=== PATIENT | male | born 1965 | race Caucasian/White ===

== ENCOUNTER 2016-11-24 11:40 | Inpatient (IN) | payer OTHER ==
[~2016-11-24] VITALS: Ht 177.8 cm; Wt 87.7 kg
[2016-11-24] MEDS ORDERED: ATOR40TA75 PO (12:09)
[2016-11-24] MEDS ORDERED: ASPI1TAB PO (12:09)
[2016-11-24 12:21] LABS: MEAN CORPUSCULAR HEMOGLOBIN 30.2 pg (27.0-33.0); MEAN CORPUSCULAR HGB CONC 33.8 g/dl (32.0-36.5); MEAN CORPUSCULAR VOLUME 89.3 fl (80.0-96.0); WHITE BLOOD COUNT 4.9 K/mm3 (4.0-10.0)
[2016-11-24 12:43] LABS: METHADONE URINE NEGATIVE (NEGATIVE)
[2016-11-24 12:50] LABS: ALKALINE PHOSPHATASE 97 U/L (45-117); ALT/SGPT 100 U/L (12-78); ANION GAP 10 MEQ/L (8-16); AST/SGOT 46 U/L (15-37); BILIRUBIN,DIRECT 0.2 MG/DL (0.0-0.2); BILIRUBIN,TOTAL 0.9 MG/DL (0.2-1.0); BLOOD UREA NITROGEN 15 MG/DL (7-18); CALCIUM LEVEL 9.6 MG/DL (8.5-10.1); CARBON DIOXIDE LEVEL 22 MEQ/L (21-32); CHLORIDE LEVEL 110 MEQ/L (98-107); CREATININE FOR GFR 0.85 MG/DL (0.70-1.30); GLOMERULAR FILTRATION RATE > 60.0 (>60); GLUCOSE, FASTING 115 MG/DL (70-105); POTASSIUM SERUM 4.1 MEQ/L (3.5-5.1); SODIUM LEVEL 142 MEQ/L (136-145)
[2016-11-24 12:51] LABS: ALBUMIN 4.2 GM/DL (3.2-5.2); ALBUMIN/GLOBULIN RATIO 1.08 (1.00-1.93); TOTAL PROTEIN 8.1 GM/DL (6.4-8.2)
[2016-11-24] MEDS ORDERED: MULT1TAB18 PO (13:01)
[2016-11-24] MEDS ORDERED: MULTCAP11 PO (13:01)
[2016-11-24] MEDS ORDERED: IBUP1TAB7 PO (13:01)
[2016-11-24] MEDS ORDERED: VITMTA PO (13:02)
--- NOTE | 2016-11-24 15:02 | MHHPEPDOC ---
[facility] History & Physical History and Physical DATE OF ADMISSION: Nov 24, 2016 at 13:37 LEGAL STATUS AT ADMISSION: 9.39 CHIEF COMPLAINT: "I've been having a hard time. I can't make decisions and work is stressing me out". 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 He was previously evaluated for similar symptoms in our ER in August 2015 and transferred to [facility]. Per review of chart he also had suicidal thoughts while stationed in [place] in 2013. 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 He was alone at home and brought out his service [employer] and thought he would use it to cut his wrists. He thought better of it and gave it over to his when she came home. [facility] [place] told [place] that for approximately 2 weeks he has had thoughts of suicide. He was escorted to our emergency department. Pts identified stressors include work related stress. Pt was tapered off Wellbutrin at his request approximately 2 weeks ago. He has been receiving therapy services as well at [facility]. Pt was deployed to [place] once and [place] twice. total time deployed was in excess of 3 years. He denies being near any blasts or explosions. Denies head trauma or concussion. 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 He states he is being med-boarded due to his heel problem. PSYCHIATRIC REVIEW OF SYSTEMS: Affective: anxious Anxiety: high Trauma: denies Psychosis: not present Personally: cooperative PAST PSYCHIATRIC HISTORY: Prior Psychiatric Disorder: 1 prior admission 08/2015 for SI. Outpatient Treatment: [facility], med mgt and therapy Suicidal/Self injurious: no attempts, came close 1 time with scissors to wrist. Psychotropic Medication History: zoloft - hardly talked at all, wellbutrin 300 mg no effect, zolpidem-ineffective. ALLERGIES: Please see below. FAMILY PSYCHIATRIC HISTORY: 1 uncle and 1 aunt from same family alcohol and drugs, brother was on zoloft at one time but no longer. Mother had depression. No suicides SOCIAL HISTORY: Early Relations/development: raised by both parents. Reports a "rough" childhood. Grew up in [place]. Sibling order: Oldest, 1 sister and 1 brother Paternal relationships: father was a weekend alcoholic and verbally abusive. 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 no combat. SUBSTANCE ABUSE HISTORY: 5-6 beers on Thursday night. PAST MEDICAL/SURGICAL HISTORY: 1. heel surgery 2017 for heel spur. 2. L wrist surgery after fx 20 years ago. 3. hypercholestremia - takes lipitor 40 mg daily. VITAL SIGNS: Temperature 98.1, pulse 84, respiratory rate 18, blood pressure 138 /83, pulse oximetry 96% on room air. 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 Very neat and trim in appearance, fidgets with fingers and hands throughout interview, fair eye contact. appears distressed. Speech: spontaneous Thought processes: goal directed. Thought content: appropriate. Abstract reasoning and computation: concrete Description of associations: good. Description of abnormal or psychotic thoughts: denies auditory and visual disturbance, has had suicidal thoughts off and on for 2-3 weeks. 2nd psychiatric admission. Judgment: good - told about his suicidal thoughts. Insight: agreed to try a new medication. good. Orientation: well oriented to place, time, situation and person. Recent and remote memory: fair, pt was 2/3 for recall after 5 mins. Attention span and concentration: decreased due to depression Fund of knowledge: Full Mood: depressed Affect: anxious, congruent. DIAGNOSES: 1. Major depressive disorder, recurrent, severe, without psychotic features. ASSESSMENT: Pt does not exhibit a formal thought disorder. No evidence of FOI, IOR or MAYCOL. Pt is reluctant to begin medication but the onset of this recent decline began 2 weeks ago when Wellbutrin 300 mg as tapered down. He has not taken any medication for 2 weeks which coincides with the onset of depression. He was on the medication about a year but states he did not feel a benefit to it. He has issues with each medication he has been prescribed so far. Talked to him about the difference in SSRI and SNRI. Offered him a trial of Effexor ER and Quetiapine for insomnia. Pt reports interrupted sleep with frequent awakening, lack of energy, decreased concentration, loss of interest in his hobbies of golfing and fishing. Pt denies guilt or hopelessness. Denies panic or worry. States he has a hard time sitting still. He fidgets constantly as he is interviewed, moving fingers and hands, looking down at the floor. Pt is concerned about his work performance and states he struggles with making decisions and "what to do next". Pt denies any prior attempt at suicide. He reports one time he held the scissors to his wrist but did not injure himself. This time he was thinking of using his service [employer] to cut his wrist. He told his about his thoughts and then he went to [facility] the [place]. Pt has a daughter and son in [place]. He has a middle son in [facility]. He has several grand children. PROBLEM LIST: 1. risk for suicide 2. depression 3. ineffective coping skills Plan: initiate treatment with venlafaxine xr at 37.5 mg if well tolerated, advance to 75 mg. Involve pt in groups, facilitate visitation with . INITIAL TREATMENT PLAN: 1. Patient was admitted on a . 2. Complete history was obtained. 3. With patients permission, family will be contacted and database will be expanded. 4. Patients medication regimen will be reviewed and changed accordingly. 5. Patient will be provided with protected environment. 6. Patient will be treated with individual, group, and milieu therapies. 7. Patient will receive supportive psych-education. 8. Discharge planning will commence immediately. 9. Outpatient follow-up treatment will be strongly recommended. 10. The initial treatment plan will focus initially on: see problem list. ESTIMATED LENGTH OF STAY: 7-10 DAYS. TIME SPENT COUNSELING AND COORDINATING INITIAL CARE: 50 minutes. Laboratory Data 24H Labs Laboratory Tests 2 11/24/16 12:04: Anion Gap 10, Glomerular Filtration Rate > 60.0, Calcium Level 9.6, Aspartate Amino Transf (AST/SGOT) 46H, Alanine Aminotransferase (ALT/SGPT) 100H, Alkaline Phosphatase 97, Total Bilirubin 0.9, Direct Bilirubin 0.2, Total Protein 8.1, Albumin 4.2, Albumin/Globulin Ratio 1.08, Thyroid Stimulating Hormone (TSH) 1.310, Salicylates Level < 1.7L, Urine Amphetamines Screen NEGATIVE, Urine Benzodiazepines Screen NEGATIVE, Urine Opiates Screen NEGATIVE, Urine Methadone Screen NEGATIVE, Acetaminophen Level < 2.0L, Urine Barbiturates Screen NEGATIVE , Urine Phencyclidine Screen NEGATIVE, Urine Cocaine Metabolite Screen NEGATIVE , Urine Cannabinoids Screen NEGATIVE, Ethyl Alcohol Level < 0.003 CBC/BMP Laboratory Tests 11/24/16 12:04 Red Blood Count 5.14, Mean Corpuscular Volume 89.3, Mean Corpuscular Hemoglobin 30.2, Mean Corpuscular Hemoglobin Concent 33.8, Red Cell Distribution Width 13.0 Medications Scheduled Aspirin (Aspirin 81) 81 Mg Tab, 81 MG PO DAILY, (Reported) Atorvastatin Calcium (Atorvastatin Calcium) 40 Mg Tab, 40 MG PO DAILY, (Reported ) Multivitamins *SMC STOCKED* (Thera M Plus *SMC STOCKED*) 1 Tab Tab, 1 TAB PO DAILY, (Reported) TAKES ALONG WITH ASPRIN Scheduled PRN Ibuprofen (Ibuprofen) 800 Mg Tab, 800 MG PO Q6H PRN for PAIN, (Reported) Allergies Coded Allergies: Sertraline (Unverified Adverse Reaction, Unknown, COULDN'T SPEAK, STARTED PULLING OUT HAIR AND EYEBROWS, 11/24/16) Zolpidem (Unverified Adverse Reaction, Unknown, COULDN'T SPEAK, STARTED PULLING OUT HAIR AND EYEBROWS, 11/24/16) Keke Pruitt Nov 24, 2016 15:02
[2016-11-24] MEDS ORDERED: IBUPROFEN 400 MG TAB PO PRN (15:30)
[2016-11-24] MEDS ORDERED: MAALOX 30 ML SUSP *UDC PO PRN (15:30)
[2016-11-24] MEDS ORDERED: traZODone 50 MG TAB PO PRN (15:30)
[2016-11-24] MEDS ORDERED: MOM 30ML SUSPENSION UDC PO PRN (15:30)
[2016-11-24] MEDS ORDERED: OLANZapine ORAL DISINTEGRATING TAB 5MG PO PRN (15:30)
[2016-11-24] MEDS: VENLAFAXINE **XR** 37.5 MG CAPSULE PO SCH (17:10)
[2016-11-24] MEDS: ATORVASTATIN 20 MG TAB PO SCH (20:42)
[2016-11-24] MEDS: QUEtiapine FUMARATE 50 MG TAB PO SCH (20:42)
[2016-11-25 07:06] VITALS: BP 111/75
[2016-11-25] MEDS: ASPIRIN 81 MG ENTERIC TAB PO SCH (08:21)
[2016-11-25] MEDS: VENLAFAXINE **XR** 37.5 MG CAPSULE PO SCH (08:21)
[2016-11-25] MEDS: MULTIVITAMINS/MINERALS THERAP 1 TAB PO SCH (08:21)
--- NOTE | 2016-11-25 09:35 | HPEPDOC ---
Medical History and Physical Date of Admission Nov 24, 2016 at 13:37 History and Physical PCP: [facility] ATTENDING: Dr. Rodriguez Linares HPI: 51 yoM admitted to [facility] for major depressive disorder, being medically examined today. No acute medical complaints today. Denies any fevers, chills, weakness, fatigue, [place], CP, SOB, cough, palpitations, abdominal pain, N/V/D or changes in bowel or bladder habits. 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 ROS: As noted in HPI, otherwise 11pt ROS of systems reviewed and unremarkable. PE: GEN: 51yoM, appears stated age. Well-nourished, well developed. No acute distress. Alert and oriented x 3. Pleasant, interactive. HEENT: Normocephalic, atraumatic. Pupils are equal, round, and reactive to light. Extraocular movements are intact. No nystagmus appreciated. Sclera are nonicteric. Conjunctiva without injection. Nose midline. Nasal turbinates without bogginess. EACs both patent BL. TMs both visualized and reynolds with good cone of light, no bulging or erythema. No facial asymmetry. Moist mucous membranes. Dentition fair. Pharynx pink and moist, no cobblestoning. Neck supple , trachea midline. No lymphadenopathy or thyromegaly appreciated. CHEST: Regular rate and rhythm, +S1, +S2 LUNGS: Clear to auscultation bilaterally. No wheezes, rales, or rhonchi. Breathing appears symmetric and easy. Patient is speaking in full sentences. No accessory muscle use. ABD: Round, soft, non-tender, non-distended. +Bowel sounds throughout. No rebound or guarding. No costovertebral angle tenderness. EXT: Pulses 2+ bilaterally dorsalis pedis and radial. No lower extremity edema appreciated. SKIN: [place], dry, warm. Capillary refill <2sec. No rashes. NEURO: Alert and oriented x 3. Cranial nerves III-XII are intact. No focal deficits appreciated. EKG: pending. A&P: 51 yoM admitted to [facility] for major depressive disorder 1. Psych. Plan per Psychiatry. Obtain baseline EKG to assure the safety of psychiatric medications as they can prolong the QT interval. 2. Hyperlipidemia. Continue Lipitor 40 mg daily. Continue aspirin 81 mg daily. Continue outpatient follow-up. 3. History of tattoo done unprofessionally. Patient is agreeable to HIV and hepatitis screening. 4. Follow up with PCP on discharge. 5. Elevated LFTs. Recheck CMP in a.m. Hepatitis profile as noted above. 6. Staff member Ed present throughout exam. Vital Signs Vital Signs Date Time Temp Pulse Resp B/P (MAP) Pulse Ox O2 Delivery O2 Flow Rate FiO2 11/25/16 07:06 98.9 90 16 111/75 (87) Room Air 11/24/16 13:56 96 Laboratory Data Labs 24H Laboratory Tests 2 11/24/16 12:04: Anion Gap 10, Glomerular Filtration Rate > 60.0, Calcium Level 9.6, Aspartate Amino Transf (AST/SGOT) 46H, Alanine Aminotransferase (ALT/SGPT) 100H, Alkaline Phosphatase 97, Total Bilirubin 0.9, Direct Bilirubin 0.2, Total Protein 8.1, Albumin 4.2, Albumin/Globulin Ratio 1.08, Thyroid Stimulating Hormone (TSH) 1.310, Salicylates Level < 1.7L, Urine Amphetamines Screen NEGATIVE, Urine Benzodiazepines Screen NEGATIVE, Urine Opiates Screen NEGATIVE, Urine Methadone Screen NEGATIVE, Acetaminophen Level < 2.0L, Urine Barbiturates Screen NEGATIVE , Urine Phencyclidine Screen NEGATIVE, Urine Cocaine Metabolite Screen NEGATIVE , Urine Cannabinoids Screen NEGATIVE, Ethyl Alcohol Level < 0.003 CBC/BMP Laboratory Tests 11/24/16 12:04 Red Blood Count 5.14, Mean Corpuscular Volume 89.3, Mean Corpuscular Hemoglobin 30.2, Mean Corpuscular Hemoglobin Concent 33.8, Red Cell Distribution Width 13.0 Home Medications Scheduled Aspirin (Aspirin 81) 81 Mg Tab, 81 MG PO DAILY Atorvastatin Calcium (Atorvastatin Calcium) 40 Mg Tab, 40 MG PO DAILY Multivitamins *SMC STOCKED* (Thera M Plus *SMC STOCKED*) 1 Tab Tab, 1 TAB PO DAILY TAKES ALONG WITH ASPRIN Scheduled PRN Ibuprofen (Ibuprofen) 800 Mg Tab, 800 MG PO Q6H PRN for PAIN Allergies Coded Allergies: Sertraline (Unverified Adverse Reaction, Unknown, COULDN'T SPEAK, STARTED PULLING OUT HAIR AND EYEBROWS, 11/24/16) Zolpidem (Unverified Adverse Reaction, Unknown, COULDN'T SPEAK, STARTED PULLING OUT HAIR AND EYEBROWS, 11/24/16) Farheen Gary Nov 25, 2016 09:35
--- NOTE | 2016-11-25 11:33 | MHIPNPDOC ---
[facility] Progress Note Progress Note DATE OF SERVICE: 11/25/16 HISTORY: day 2 of admission for active SI with plan. VITAL SIGNS: See below. NEW TEST RESULTS: na CURRENT MEDICATIONS: See below. MENTAL STATUS EXAMINATION: Patient is a 51-year old male, who is average height, lean build, short light colored hair and eye glasses. Speech: Is spontaneous Language skills are good. Thought processes including: goal directed. Thought content: appropriate. Abstract reasoning, and computation: good. Description of associations: good. Description of abnormal or psychotic thoughts: recurring SI with plan to cut wrists. Not having SI since admission, no delusions, low self-esteem ("I can't do anything right"). Judgment: good. Insight: good. Orientation: well oriented. Recent and remote memory: some c/o inability to recall things, recent and remote Attention span and concentration: varies due to depression Fund of knowledge: Full. Mood: depressed. Affect: congruent, stoic. DIAGNOSES: 1. MDD, severe, recurrent, without psychotic features. 2. MIMA ASSESSMENT:Pt 's records from [facility] were reviewed. His daughter is getting in [place] on 12/20. He has been a member of [employer]. His case is due to be presented for boarding on 12/09/16. He questions if it is for behavioral health or his foot. Pt was also prescribed Abilify recently 5 mg and mirtazapine 7. 5mg. He stopped all meds without his psychiatrists knowledge 2 weeks ago which coincides with his decline in mood an onset of SI. MANAGEMENT PLAN: I will not restart the Abilify at this time. Will continue with Seroquel for now and monitor effectiveness. pt did not benefit from Wellbutrin or mirtazapine or the augmentation of Abilify. Perhaps he will have a better response to current medications. Continue to monitor safety, effectiveness of meds, enc group engagement. MEDICAL DATA: PE: GEN: 51yoM, appears stated age. Well-nourished, well developed. No acute distress. Alert and oriented x 3. Pleasant, interactive. HEENT: Normocephalic, atraumatic. Pupils are equal, round, and reactive to light. Extraocular movements are intact. No nystagmus appreciated. Sclera are nonicteric. Conjunctiva without injection. Nose midline. Nasal turbinates without bogginess. EACs both patent BL. TMs both visualized and reynolds with good cone of light, no bulging or erythema. No facial asymmetry. Moist mucous membranes. Dentition fair. Pharynx pink and moist, no cobblestoning. Neck supple , trachea midline. No lymphadenopathy or thyromegaly appreciated. CHEST: Regular rate and rhythm, +S1, +S2 LUNGS: Clear to auscultation bilaterally. No wheezes, rales, or rhonchi. Breathing appears symmetric and easy. Patient is speaking in full sentences. No accessory muscle use. ABD: Round, soft, non-tender, non-distended. +Bowel sounds throughout. No rebound or guarding. No costovertebral angle tenderness. EXT: Pulses 2+ bilaterally dorsalis pedis and radial. No lower extremity edema appreciated. SKIN: [place], dry, warm. Capillary refill <2sec. No rashes. NEURO: Alert and oriented x 3. Cranial nerves III-XII are intact. No focal deficits appreciated. EKG: pending. A&P: 51 yoM admitted to [facility] for major depressive disorder 1. Psych. Plan per Psychiatry. Obtain baseline EKG to assure the safety of psychiatric medications as they can prolong the QT interval. 2. Hyperlipidemia. Continue Lipitor 40 mg daily. Continue aspirin 81 mg daily. Continue outpatient follow-up. 3. History of tattoo done unprofessionally. Patient is agreeable to HIV and hepatitis screening. 4. Follow up with PCP on discharge. 5. Elevated LFTs. Recheck CMP in a.m. Hepatitis profile as noted above. TIME SPENT: 25 minutes. Vital Signs Vital Signs Date Time Temp Pulse Resp B/P (MAP) Pulse Ox O2 Delivery O2 Flow Rate FiO2 11/25/16 07:06 98.9 90 16 111/75 (87) Room Air 11/24/16 13:56 96 Laboratory Data 24H Labs Laboratory Tests 2 11/24/16 12:04: Anion Gap 10, Glomerular Filtration Rate > 60.0, Calcium Level 9.6, Aspartate Amino Transf (AST/SGOT) 46H, Alanine Aminotransferase (ALT/SGPT) 100H, Alkaline Phosphatase 97, Total Bilirubin 0.9, Direct Bilirubin 0.2, Total Protein 8.1, Albumin 4.2, Albumin/Globulin Ratio 1.08, Thyroid Stimulating Hormone (TSH) 1.310, Salicylates Level < 1.7L, Urine Amphetamines Screen NEGATIVE, Urine Benzodiazepines Screen NEGATIVE, Urine Opiates Screen NEGATIVE, Urine Methadone Screen NEGATIVE, Acetaminophen Level < 2.0L, Urine Barbiturates Screen NEGATIVE , Urine Phencyclidine Screen NEGATIVE, Urine Cocaine Metabolite Screen NEGATIVE , Urine Cannabinoids Screen NEGATIVE, Ethyl Alcohol Level < 0.003 CBC/BMP Laboratory Tests 11/24/16 12:04 Red Blood Count 5.14, Mean Corpuscular Volume 89.3, Mean Corpuscular Hemoglobin 30.2, Mean Corpuscular Hemoglobin Concent 33.8, Red Cell Distribution Width 13.0 Current Medications Current Medications Al Hydrox/Mg Hydrox/Simethicone (Mylanta) 30 ml Q4HP PRN PO HEARTBURN/ INDIGESTION; Start 11/24/16 at 15:30; Stop 12/24/16 at 15:29 Aspirin (Ecotrin) 81 mg DAILY PO Last administered on 11/25/16 08:21; Start at 09:00; Stop 12/25/16 at 08:59 Atorvastatin Calcium (Lipitor) 40 mg QHS PO Last administered on 11/24/16 20: 42; Start 11/24/16 at 21:00; Stop 12/24/16 at 20:59 Home Med (Med Rec Complete!) ASDIRECTED XX ; Start 11/24/16 at 13:15; Stop at 13:15; Status DC Ibuprofen (Advil) 400 mg Q6HP PRN PO PAIN; Start 11/24/16 at 15:30; Stop at 15:29 Magnesium Hydroxide (Milk Of Magnesia) 30 ml DAILYPRN PRN PO CONSTIPATION; Start 11/24/16 at 15:30; Stop 12/24/16 at 15:29 Multivitamins (Theragram-M) 1 tab DAILY PO Last administered on 11/25/16 08:21 ; Start 11/25/16 at 09:00; Stop 12/25/16 at 08:59 Olanzapine (ZyPREXA ZYDIS) 5 mg Q6HP PRN PO ANXIETY/AGITATION; Start at 15:30; Stop 12/24/16 at 15:29 Quetiapine Fumarate (SEROquel) 50 mg QHS PO Last administered on 11/24/16 20: 42; Start 11/24/16 at 21:00; Stop 12/24/16 at 20:59 Trazodone HCl (Desyrel) 50 mg QHSP PRN PO INSOMNIA; Start 11/24/16 at 15:30; Stop 12/24/16 at 15:29; Status Cancel Venlafaxine HCl (Effexor Xr) 37.5 mg QAM PO Last administered on 11/25/16 08:21; Start 11/24/16 at 09:00; Stop 12/24/16 at 08:59 Allergies Coded Allergies: Sertraline (Unverified Adverse Reaction, Unknown, COULDN'T SPEAK, STARTED PULLING OUT HAIR AND EYEBROWS, 11/24/16) Zolpidem (Unverified Adverse Reaction, Unknown, COULDN'T SPEAK, STARTED PULLING OUT HAIR AND EYEBROWS, 11/24/16) Keke Pruitt Nov 25, 2016 11:33
[2016-11-25 18:21] VITALS: BP 136/84
--- NOTE | 2016-11-25 20:48 | ECGEPIP ---
Stationary ECG Study [facility] Test Date: 2016-11-25 Pat Name: ALEX MORRISSEY Department: Room: [place] [address] Gender: M Javascript Developer: TRINA : [id number] Requested By: Farheen Gary Order Number: [id number] Reading MD: Rodriguez Pérez Measurements Intervals [place] Rate: 66 P: 46 DC: 146 QRS: 11 QRSD: 85 T: 46 QT: 367 QTc: 387 Interpretive Statements SINUS RHYTHM NONSPECIFIC T-WAVE ABNORMALITY No prior ECG available for comparison at the time of interpretation. Electronically Signed On 11-25-2016 20:48:33 EDT by Rodriguez Pérez
[2016-11-25] MEDS: QUEtiapine FUMARATE 50 MG TAB PO SCH (21:41)
[2016-11-25] MEDS: ATORVASTATIN 20 MG TAB PO SCH (21:42)
[2016-11-26 06:44] VITALS: BP 181/94
[2016-11-26 07:02] VITALS: BP 120/65
[2016-11-26 07:13] LABS: ALBUMIN 3.5 GM/DL (3.2-5.2); ALKALINE PHOSPHATASE 78 U/L (45-117); ALT/SGPT 77 U/L (12-78); ANION GAP 7 MEQ/L (8-16); AST/SGOT 27 U/L (15-37); BILIRUBIN,TOTAL 0.9 MG/DL (0.2-1.0); BLOOD UREA NITROGEN 15 MG/DL (7-18); CALCIUM LEVEL 9.1 MG/DL (8.5-10.1); CARBON DIOXIDE LEVEL 26 MEQ/L (21-32); CHLORIDE LEVEL 109 MEQ/L (98-107); CREATININE FOR GFR 0.88 MG/DL (0.70-1.30); GLOMERULAR FILTRATION RATE > 60.0 (>60); GLUCOSE, FASTING 106 MG/DL (70-105); POTASSIUM SERUM 4.2 MEQ/L (3.5-5.1); SODIUM LEVEL 142 MEQ/L (136-145)
[2016-11-26] MEDS: ASPIRIN 81 MG ENTERIC TAB PO SCH (09:11)
[2016-11-26] MEDS: MULTIVITAMINS/MINERALS THERAP 1 TAB PO SCH (09:11)
[2016-11-26] MEDS: VENLAFAXINE **XR** 75MG CAPSULE PO SCH (09:11)
--- NOTE | 2016-11-26 11:15 | MHIPNPDOC ---
[facility] Progress Note Progress Note DATE OF SERVICE: 11/26/16 HISTORY: day 3 of admission for SI with plan. VITAL SIGNS: See below. NEW TEST RESULTS: EKG results: QTc Interval wnl. repeat labs wnl.Stationary ECG Study 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 Electronically Signed On 11-25-2016 20:48:33 EDT by Rodriguez Pérez DD: Rodriguez Pérez MD [facility] 11/25/16 1307 DT: EP 11/25/162047 CURRENT MEDICATIONS: See below. 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 Very neat and trim in appearance, fair eye contact. appears more relaxed, smiling. Speech: spontaneous Thought processes: goal directed. Thought content: appropriate. Abstract reasoning and computation: concrete Description of associations: good. Description of abnormal or psychotic thoughts: denies auditory and visual disturbance, has had suicidal thoughts off and on for 2-3 weeks. 2nd psychiatric admission. Judgment: good - told about his suicidal thoughts. Insight: agreed to try a new medication. good. Orientation: well oriented to place, time, situation and person. Recent and remote memory: fair, pt was 2/3 for recall after 5 mins. Attention span and concentration: decreased due to depression Fund of knowledge: Full Mood: depressed Affect: anxious, congruent. DIAGNOSES: 1. Major depressive disorder, recurrent, severe, without psychotic features. ASSESSMENT:met with pt for 1:1. He is still experiencing night time awakening. Last night he was awake at 1:30 and 4:00 a.m. He is tolerating Effexor without difficulties. Educated pt on s/s of allergic reaction and benefits to medication along with risks. He is not having n/d or bloating. No palpitations or excessive sweating. No CASTANON or skin rash. Mood is euthymic but he continues to have random thoughts of suicide. he needs additional time to stabilize with the medication changes. Pt has good hygiene, is wearing his watch. His has visited. He attends programming. He was informed of a promotion last night. He is under-whelmed by it. He would prefer less work related stress. Pt adheres to medication regime and unit rules and protocols. Interactions are appropriate. Prognosis is good. Discussed not stopping meds without discussing with provider ahead of time. MANAGEMENT PLAN: increase Seroquel to 75 mg at hs, continue observation for safety as pt still reporting SI but random, not constant. No plan and no intent. Monitor sleep for effectiveness of medication increase. TIME SPENT: 25 minutes. Vital Signs Vital Signs Date Time Temp Pulse Resp B/P (MAP) Pulse Ox O2 Delivery O2 Flow Rate FiO2 11/26/16 07:02 120/65 (83) 11/26/16 06:44 100.2 79 20 11/25/16 18:21 Room Air 11/24/16 13:56 96 Laboratory Data 24H Labs Laboratory Tests 2 11/26/16 06:26: Anion Gap 7L, Glomerular Filtration Rate > 60.0, Blood Urea Nitrogen 15, Creatinine 0.88, Sodium Level 142, Potassium Level 4.2, Chloride Level 109H, Carbon Dioxide Level 26, Calcium Level 9.1, Aspartate Amino Transf (AST/SGOT) 27 , Alanine Aminotransferase (ALT/SGPT) 77, Alkaline Phosphatase 78, Total Bilirubin 0.9, Total Protein 7.0, Albumin 3.5, Albumin/Globulin Ratio 1.00 CBC/BMP Laboratory Tests 11/26/16 06:26 Calcium Level 9.1, Aspartate Amino Transf (AST/SGOT) 27, Alanine Aminotransferase (ALT/SGPT) 77, Alkaline Phosphatase 78, Total Bilirubin 0.9, Total Protein 7.0, Albumin 3.5 Current Medications Current Medications Al Hydrox/Mg Hydrox/Simethicone (Mylanta) 30 ml Q4HP PRN PO HEARTBURN/ INDIGESTION; Start 11/24/16 at 15:30; Stop 12/24/16 at 15:29 Aspirin (Ecotrin) 81 mg DAILY PO Last administered on 11/26/16t 09:11; Start at 09:00; Stop 12/25/16 at 08:59 Atorvastatin Calcium (Lipitor) 40 mg QHS PO Last administered on 11/25/16 21: 42; Start 11/24/16 at 21:00; Stop 12/24/16 at 20:59 Home Med (Med Rec Complete!) ASDIRECTED XX ; Start 11/24/16 at 13:15; Stop at 13:15; Status DC Ibuprofen (Advil) 400 mg Q6HP PRN PO PAIN; Start 11/24/16 at 15:30; Stop at 15:29 Magnesium Hydroxide (Milk Of Magnesia) 30 ml DAILYPRN PRN PO CONSTIPATION; Start 11/24/16 at 15:30; Stop 12/24/16 at 15:29 Multivitamins (Theragram-M) 1 tab DAILY PO Last administered on 11/26/16 09:11 ; Start 11/25/16 at 09:00; Stop 12/25/16 at 08:59 Olanzapine (ZyPREXA ZYDIS) 5 mg Q6HP PRN PO ANXIETY/AGITATION; Start at 15:30; Stop 12/24/16 at 15:29 Quetiapine Fumarate (SEROquel) 50 mg QHS PO Last administered on 11/25/16 21: 41; Start 11/24/16 at 21:00; Stop 11/26/16 at 10:36; Status DC Quetiapine Fumarate (SEROquel) 75 mg QHS PO ; Start 11/26/16 at 21:00; Stop at 20:59 Trazodone HCl (Desyrel) 50 mg QHSP PRN PO INSOMNIA; Start 11/24/16 at 15:30; Stop 12/24/16 at 15:29; Status Cancel Venlafaxine HCl (Effexor Xr) 37.5 mg QAM PO Last administered on 11/25/16 08:21; Start 11/24/16 at 09:00; Stop 11/26/16 at 08:24; Status DC Venlafaxine HCl (Effexor Xr) 75 mg QAM PO Last administered on 11/26/16 09 :11; Start 11/26/16 at 09:00; Stop 12/26/16 at 08:59 Allergies Coded Allergies: Sertraline (Unverified Adverse Reaction, Unknown, COULDN'T SPEAK, STARTED PULLING OUT HAIR AND EYEBROWS, 11/24/16) Zolpidem (Unverified Adverse Reaction, Unknown, COULDN'T SPEAK, STARTED PULLING OUT HAIR AND EYEBROWS, 11/24/16) Keke Pruitt Nov 26, 2016 11:15
[2016-11-26 18:00] VITALS: BP 141/88
[2016-11-26] MEDS: ATORVASTATIN 20 MG TAB PO SCH (21:13)
[2016-11-26] MEDS: QUEtiapine FUMARATE 25 MG TAB PO SCH (21:14)
[2016-11-27 06:45] VITALS: BP 150/83
[2016-11-27] MEDS: VENLAFAXINE **XR** 75MG CAPSULE PO SCH (08:18)
[2016-11-27] MEDS: ASPIRIN 81 MG ENTERIC TAB PO SCH (08:18)
[2016-11-27] MEDS: MULTIVITAMINS/MINERALS THERAP 1 TAB PO SCH (08:18)
--- NOTE | 2016-11-27 16:09 | MHIPNPDOC ---
[facility] Progress Note Progress Note DATE OF SERVICE: 11/27/16 HISTORY: Reported improvement in the quality of his sleep. Stated that he felt "more stable" than he did at admission. Denied the presence of SI during interview today. Did note that he had been experiencing increased bowel movements today and wondered if that was potentially a side effect of his medications. Able to laugh about this and stated "I'd rather have it coming out than staying in." VITAL SIGNS: See below. NEW TEST RESULTS: No new labs/tests. CURRENT MEDICATIONS: See below. MENTAL STATUS EXAMINATION: Patient is a 51-year old male, who is dressed in [facility] with good hygiene/grooming; he appears the stated age, is calm and cooperative with the interview, no psychomotor agitation/retardation noted Speech: Is fluent; normal volume, tone, and rate Thought processes including: logical, goal-oriented Thought content: denies SI/HI; was curious about gastric side effects of medications Description of abnormal or psychotic thoughts: denies AVH, does not appear internally stimulated; no paranoid or delusional thoughts elicited Judgment: good Insight: fair Orientation: x3 Recent and remote memory: intact Attention span and concentration: intact Mood: "better than I was". Affect: mildly dysphoric/anxious; full range, congruent to stated mood and thoughts DIAGNOSES: Major depressive disorder, recurrent, severe, without psychotic features. 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 He is responding well to his pharmacotherapy, appears to be improving; uncertain if patient is attending group sessions. Patient's sleep appears to be improving which is likely contributing to his elevation in mood as well. He was unable today to voice any coping mechanisms which may [place], he would likely benefit from additional time spent focused on coping strategies. MANAGEMENT PLAN: continue current medications; encourage patient to attend groups TIME SPENT: 15 minutes. Vital Signs Vital Signs Date Time Temp Pulse Resp B/P (MAP) Pulse Ox O2 Delivery O2 Flow Rate FiO2 11/27/16 06:45 99.4 79 16 150/83 (105) 11/25/16 18:21 Room Air 11/24/16 13:56 96 Current Medications Current Medications Al Hydrox/Mg Hydrox/Simethicone (Mylanta) 30 ml Q4HP PRN PO HEARTBURN/ INDIGESTION; Start 11/24/16 at 15:30; Stop 12/24/16 at 15:29 Aspirin (Ecotrin) 81 mg DAILY PO Last administered on 11/27/16 08:18; Start at 09:00; Stop 12/25/16 at 08:59 Atorvastatin Calcium (Lipitor) 40 mg QHS PO Last administered on 11/26/16 21: 13; Start 11/24/16 at 21:00; Stop 12/24/16 at 20:59 Home Med (Med Rec Complete!) ASDIRECTED XX ; Start 11/24/16 at 13:15; Stop at 13:15; Status DC Ibuprofen (Advil) 400 mg Q6HP PRN PO PAIN; Start 11/24/16 at 15:30; Stop at 15:29 Magnesium Hydroxide (Milk Of Magnesia) 30 ml DAILYPRN PRN PO CONSTIPATION; Start 11/24/16 at 15:30; Stop 12/24/16 at 15:29 Multivitamins (Theragram-M) 1 tab DAILY PO Last administered on 11/27/16 08:18 ; Start 11/25/16 at 09:00; Stop 12/25/16 at 08:59 Olanzapine (ZyPREXA ZYDIS) 5 mg Q6HP PRN PO ANXIETY/AGITATION; Start at 15:30; Stop 12/24/16 at 15:29 Quetiapine Fumarate (SEROquel) 50 mg QHS PO Last administered on 11/25/16 21: 41; Start 11/24/16 at 21:00; Stop 11/26/16 at 10:36; Status DC Quetiapine Fumarate (SEROquel) 75 mg QHS PO Last administered on 11/26/16 21: 14; Start 11/26/16 at 21:00; Stop 12/26/16 at 20:59 Trazodone HCl (Desyrel) 50 mg QHSP PRN PO INSOMNIA; Start 11/24/16 at 15:30; Stop 12/24/16 at 15:29; Status Cancel Venlafaxine HCl (Effexor Xr) 37.5 mg QAM PO Last administered on 11/25/16 08:21; Start 8/28/17 at 09:00; Stop 11/26/16 at 08:24; Status DC Venlafaxine HCl (Effexor Xr) 75 mg QAM PO Last administered on 11/27/16t 08 :18; Start 11/26/16 at 09:00; Stop 12/26/16 at 08:59 Allergies Coded Allergies: Sertraline (Unverified Adverse Reaction, Unknown, COULDN'T SPEAK, STARTED PULLING OUT HAIR AND EYEBROWS, 11/24/16) Zolpidem (Unverified Adverse Reaction, Unknown, COULDN'T SPEAK, STARTED PULLING OUT HAIR AND EYEBROWS, 11/24/16) DEMARCUS RICKETTS MD Nov 27, 2016 16:09
[2016-11-27 18:00] VITALS: BP 116/80
[2016-11-27] MEDS: ATORVASTATIN 20 MG TAB PO SCH (21:38)
[2016-11-27] MEDS: QUEtiapine FUMARATE 25 MG TAB PO SCH (21:39)
[2016-11-28 07:02] VITALS: BP 102/67
[2016-11-28] MEDS: VENLAFAXINE **XR** 75MG CAPSULE PO SCH (08:09)
[2016-11-28] MEDS: MULTIVITAMINS/MINERALS THERAP 1 TAB PO SCH (08:09)
[2016-11-28] MEDS: ASPIRIN 81 MG ENTERIC TAB PO SCH (08:09)
--- NOTE | 2016-11-28 17:51 | MHIPNPDOC ---
[facility] [place] Progress Note Progress Note DATE OF SERVICE: 11/28/16 HISTORY: Reports that his mood has been good and that he has been attending groups with good results. He denies having any issues with his GI tract today. Feels like he is receiving good benefits from being at [facility]. Reports having good sleep quality as well. VITAL SIGNS: See below. NEW TEST RESULTS: no new labs CURRENT MEDICATIONS: See below. MENTAL STATUS EXAMINATION: Patient is a 51-year old male, who is dressed in personal clothes with good hygiene; calm and cooperative, makes good eye contact Speech: Is fluent; normal rate, tone, volume Thought processes including: logical, linear, coherent Thought content: denies SI/HI; reports that he has found groups very useful Description of associations: intact Description of abnormal or psychotic thoughts: denies AVH, does not appear internally preoccupied; no paranoid or delusional thoughts elicited Judgment: good Insight: good Orientation: x3 Recent and remote memory: intact Attention span and concentration: intact Mood: "good". Affect: euthymic; full range, congruent with mood DIAGNOSES: Major depressive disorder, recurrent, severe, without psychotic features. ASSESSMENT: 51 year old man with active depressive episode who is responding well to treatment. Readily engaging in activities on the unit and appear to be focused on improving his overall quality of mental health. Reports receiving good benefit from groups and is interested in learning more coping skills. There are no safety concerns at this time, however [facility] policy prevents a safe discharge plan as they will not accept him at this time. MANAGEMENT PLAN: continue current medications; encourage patient to attend groups TIME SPENT: 15 minutes. Vital Signs Vital Signs Date Time Temp Pulse Resp B/P (MAP) Pulse Ox O2 Delivery O2 Flow Rate FiO2 11/28/16 07:02 98.7 86 16 102/67 (79) 11/25/16 18:21 Room Air 11/24/16 13:56 96 Current Medications Current Medications Al Hydrox/Mg Hydrox/Simethicone (Mylanta) 30 ml Q4HP PRN PO HEARTBURN/ INDIGESTION; Start 11/24/16 at 15:30; Stop 12/24/16 at 15:29 Aspirin (Ecotrin) 81 mg DAILY PO Last administered on 11/28/16t 08:09; Start at 09:00; Stop 12/25/16 at 08:59 Atorvastatin Calcium (Lipitor) 40 mg QHS PO Last administered on 11/27/16 21: 38; Start 11/24/16 at 21:00; Stop 12/24/16 at 20:59 Home Med (Med Rec Complete!) ASDIRECTED XX ; Start 11/24/16 at 13:15; Stop at 13:15; Status DC Ibuprofen (Advil) 400 mg Q6HP PRN PO PAIN; Start 11/24/16 at 15:30; Stop at 15:29 Magnesium Hydroxide (Milk Of Magnesia) 30 ml DAILYPRN PRN PO CONSTIPATION; Start 11/24/16 at 15:30; Stop 12/24/16 at 15:29 Multivitamins (Theragram-M) 1 tab DAILY PO Last administered on 11/28/16 08:09 ; Start 11/25/16 at 09:00; Stop 12/25/16 at 08:59 Olanzapine (ZyPREXA ZYDIS) 5 mg Q6HP PRN PO ANXIETY/AGITATION; Start at 15:30; Stop 12/24/16 at 15:29 Quetiapine Fumarate (SEROquel) 50 mg QHS PO Last administered on 11/25/16 21: 41; Start 11/24/16 at 21:00; Stop 11/26/16 at 10:36; Status DC Quetiapine Fumarate (SEROquel) 75 mg QHS PO Last administered on 11/27/16 21: 39; Start 11/26/16 at 21:00; Stop 12/26/16 at 20:59 Trazodone HCl (Desyrel) 50 mg QHSP PRN PO INSOMNIA; Start 11/24/16 at 15:30; Stop 12/24/16 at 15:29; Status Cancel Venlafaxine HCl (Effexor Xr) 37.5 mg QAM PO Last administered on 11/25/16 08:21; Start 11/24/16 at 09:00; Stop 11/26/16 at 08:24; Status DC Venlafaxine HCl (Effexor Xr) 75 mg QAM PO Last administered on 11/28/16 08: 09; Start 11/26/16 at 09:00; Stop 12/26/16 at 08:59 Allergies Coded Allergies: Sertraline (Unverified Adverse Reaction, Unknown, COULDN'T SPEAK, STARTED PULLING OUT HAIR AND EYEBROWS, 11/24/16) Zolpidem (Unverified Adverse Reaction, Unknown, COULDN'T SPEAK, STARTED PULLING OUT HAIR AND EYEBROWS, 11/24/16) DEMARCUS RICKETTS MD Nov 28, 2016 17:51
[2016-11-28 18:00] VITALS: BP 135/77
[2016-11-28] MEDS: ATORVASTATIN 20 MG TAB PO SCH (21:29)
[2016-11-28] MEDS: QUEtiapine FUMARATE 25 MG TAB PO SCH (21:30)
[2016-11-29 07:10] VITALS: BP 117/67
[2016-11-29] MEDS: VENLAFAXINE **XR** 75MG CAPSULE PO SCH (08:32)
[2016-11-29] MEDS: MULTIVITAMINS/MINERALS THERAP 1 TAB PO SCH (08:32)
[2016-11-29] MEDS: ASPIRIN 81 MG ENTERIC TAB PO SCH (08:33)
[2016-11-29 18:00] VITALS: BP 130/63
[2016-11-29] MEDS: ATORVASTATIN 20 MG TAB PO SCH (21:47)
[2016-11-29] MEDS: QUEtiapine FUMARATE 25 MG TAB PO SCH (21:47)
[2016-11-30 06:34] VITALS: BP 112/65
[2016-11-30] MEDS: VENLAFAXINE **XR** 75MG CAPSULE PO SCH (08:20)
[2016-11-30] MEDS: MULTIVITAMINS/MINERALS THERAP 1 TAB PO SCH (08:20)
[2016-11-30] MEDS: ASPIRIN 81 MG ENTERIC TAB PO SCH (08:20)
[2016-11-30 18:00] VITALS: BP 120/76
[2016-11-30] MEDS: QUEtiapine FUMARATE 25 MG TAB PO SCH (21:42)
[2016-11-30] MEDS: ATORVASTATIN 20 MG TAB PO SCH (21:43)
[2016-12-01 07:02] VITALS: BP 139/75
[2016-12-01] MEDS: VENLAFAXINE **XR** 75MG CAPSULE PO SCH (08:38)
[2016-12-01] MEDS: MULTIVITAMINS/MINERALS THERAP 1 TAB PO SCH (08:38)
[2016-12-01] MEDS: ASPIRIN 81 MG ENTERIC TAB PO SCH (08:38)
[2016-12-01 18:00] VITALS: BP 130/64
[2016-12-01] MEDS: QUEtiapine FUMARATE 25 MG TAB PO SCH (21:42)
[2016-12-01] MEDS: ATORVASTATIN 20 MG TAB PO SCH (21:43)
[2016-12-02 06:31] VITALS: BP 117/72
[2016-12-02] MEDS: MULTIVITAMINS/MINERALS THERAP 1 TAB PO SCH (08:03)
[2016-12-02] MEDS: ASPIRIN 81 MG ENTERIC TAB PO SCH (08:03)
[2016-12-02] MEDS: VENLAFAXINE **XR** 75MG CAPSULE PO SCH (08:04)
[2016-12-02] MEDS ORDERED: QUET1TAB7 PO (13:41)
[2016-12-02] MEDS ORDERED: VENL75CA2 PO (13:41)
--- NOTE | 2016-12-02 15:24 | MHDSPDOC ---
[facility] Discharge Summary Discharge Summary DATE OF ADMISSION: Nov 24, 2016 at 13:37 DATE OF DISCHARGE: Dec 02, 2016 at 14:00 DISCHARGE DIAGNOSES: Major depressive disorder, recurrent, severe, without psychotic features. REASON FOR ADMISSION: "I've been having a hard time. I can't make decisions and work is stressing me out". 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 He was previously evaluated for similar symptoms in our ER in August 2015 and transferred to [facility]. Per review of chart he also had suicidal thoughts while stationed in [place] in 2013. 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 He was alone at home and brought out his service Tong and thought he would use it to cut his wrists. He thought better of it and gave it over to his when she came home. [facility] [place] and told them that for approximately 2 weeks he has had thoughts of suicide. He was escorted to our emergency department. Pts identified stressors include work related stress. Pt was tapered off Wellbutrin at his request approximately 2 weeks ago. He has been receiving therapy services as well at [facility]. Pt was deployed to [place] and [place] twice. total time deployed was in excess of 3 years. He denies being near any blasts or explosions. Denies head trauma or concussion. 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 He states he is being med-boarded due to his heel problem. CONSULTANTS INVOLVED: na TREATMENT AND PROGRESS ON THE UNIT : pt was started on Effexor at 37.5 mg and titrated to 75 mg after 48 hours. Sleep was addressed with quetiapine for histamine receptor coverage and mood improvement. Pt tolerated medications very well. Pt attended programming and was visible on unit. He was friendly to others. He treated everyone with respect. He showed empathy. After several days he was no longer having suicidal thoughts. HOSPITAL COURSE: pt ate and slept well after a few days. no GI distress reported. Anxiety and intermittent night time awakening took a few days to address but was finally controlled with med increases. DISCHARGE ASSESSMENT: Pt was reported to be ready for discharge today by several staff. After team conference he was interviewed by comic writer and reported feeling a great deal better than when he arrived. He was cautioned about stopping his medications. He is fearful his feeling swill return once back to work but hopefully he will be able to verbalize his stressors to his therapist and find some healthy way to cope with it. He is happily anticipating his daughters wedding out of state later this month. Pt worked on improving his mental status and found the programming here useful. MENTAL STATUS EXAMINATION ON DISCHARGE: Patient is a 51-year old male, who is dressed in personal clothes with good hygiene; calm and cooperative, makes good eye contact Speech: Is fluent; normal rate, tone, volume Thought processes including: logical, linear, coherent Thought content: denies SI/HI; reports that he has found groups very useful Description of associations: intact Description of abnormal or psychotic thoughts: denies AVH, does not appear internally preoccupied; no paranoid or delusional thoughts elicited Judgment: good Insight: good Orientation: x3 Recent and remote memory: intact Attention span and concentration: intact Mood: "good". Affect: euthymic; full range, congruent with mood MEDICATIONS ON DISCHARGE: - Lexapro 75 mg for anxiety and depression - quetiapine 75 mg for depression and sleep. PLAN/FOLLOWUP ARRANGEMENTS: [facility] for med mgt and therapy. Medical status: A&P: 51 yoM admitted to [facility] for major depressive disorder 1. Psych. Plan per Psychiatry. Obtain baseline EKG to assure the safety of psychiatric medications as they can prolong the QT interval. 2. Hyperlipidemia. Continue Lipitor 40 mg daily. Continue aspirin 81 mg daily. Continue outpatient follow-up. 3. History of tattoo done unprofessionally. Patient is agreeable to HIV and hepatitis screening. 4. Follow up with PCP on discharge. 5. Elevated LFTs. Recheck CMP in a.m. Hepatitis profile as noted above. The amount of time spent in the coordination of care for this patient was approximately 30 minutes. Vital Signs/I&Os Vital Signs Date Time Temp Pulse Resp B/P (MAP) Pulse Ox O2 Delivery O2 Flow Rate FiO2 12/02/16 06:31 98.3 75 18 117/72 (87) 12/01/16 07:02 Room Air Medications Scheduled Aspirin (Aspirin 81) 81 Mg Tab, 81 MG PO DAILY, (Reported) Atorvastatin Calcium (Atorvastatin Calcium) 40 Mg Tab, 40 MG PO DAILY, (Reported ) Multivitamins *[facility] STOCKED* (Thera M Plus *[facility] STOCKED*) 1 Tab Tab, 1 TAB PO DAILY, (Reported) TAKES ALONG WITH ASPRIN Quetiapine Fumerate (Quetiapine Fumarate) 25 Mg Tab, 75 MG PO QHS for mood insomnia for 7 Days, #21 take 3 tabs for a total of 75 mg nightly as needed for sleep. Pt will require metabolic screening labs sina. Venlafaxine HCl (Venlafaxine HCl ER) 75 Mg Cap, 75 MG PO QAM for ANXIETY for 7 Days, #7 do not miss doses or stop medication abruptly. Scheduled PRN Ibuprofen (Ibuprofen) 800 Mg Tab, 800 MG PO Q6H PRN for PAIN, (Reported) Allergies Coded Allergies: Sertraline (Unverified Adverse Reaction, Unknown, COULDN'T SPEAK, STARTED PULLING OUT HAIR AND EYEBROWS, 11/24/16) Zolpidem (Unverified Adverse Reaction, Unknown, COULDN'T SPEAK, STARTED PULLING OUT HAIR AND EYEBROWS, 11/24/16) Keke Pruitt Dec 02, 2016 15:24
== END 2016-12-02 14:00 | disposition home or self-care (01) | DRG 885 ==
LOC: M ED 11:40 → M ED INP 13:37 → M PSY 14:15
PROVIDERS: ADMIT Psychiatry & Neurology Psychiatry; ATTEND Psychiatry & Neurology Psychiatry
DX: F33.2 Major depressive disorder, recurrent severe without psychotic features (principal); F41.1 Generalized anxiety disorder; E78.5 Hyperlipidemia, unspecified; Z81.1 Family history of alcohol abuse and dependence; Z81.3 Family history of other psychoactive substance abuse and dependence; Z81.8 Family history of other mental and behavioral disorders; Z62.811 Personal history of psychological abuse in childhood; Z91.82 Personal history of military deployment; Z88.8 Allergy status to other drugs, medicaments and biological substances; Z79.82 Long term (current) use of aspirin; Z79.899 Other long term (current) drug therapy

== ENCOUNTER 2017-01-06 07:40 | Emergency (ER) | payer OTHER ==
[~2017-01-06] VITALS: Ht 177.8 cm; Wt 88.1 kg
[~2017-01-06 07:40] MED LIST: ASPI1TAB PO; ATOR40TA75 PO; IBUP1TAB7 PO; MULT1TAB18 PO; MULTCAP11 PO; QUET1TAB7 PO; VENL75CA2 PO; VITMTA PO
[2017-01-06 07:54] VITALS: BP 152/83
[2017-01-06] MEDS ORDERED: MUCI600T37 PO (08:13)
[2017-01-06] MEDS ORDERED: AUGM875T28 PO (08:13)
[2017-01-06] MEDS ORDERED: CLAR1TAB2 PO (08:13)
[2017-01-06] MEDS ORDERED: AUGMENTIN 875 MG TAB PO ONE (08:15)
== END 2017-01-06 08:31 | disposition home or self-care (01) ==
LOC: M ED 07:40
DX: J01.90 Acute sinusitis, unspecified (principal); E78.00 Pure hypercholesterolemia, unspecified; F41.9 Anxiety disorder, unspecified; F33.9 Major depressive disorder, recurrent, unspecified; Z79.82 Long term (current) use of aspirin; Z79.899 Other long term (current) drug therapy; Z88.8 Allergy status to other drugs, medicaments and biological substances

== ENCOUNTER → 2017-04-30 | Outpatient (CLI) | payer OTHER | LOC: M CARPUL 09:07 | DX: I10 Essential (primary) hypertension (principal) ==

== ENCOUNTER 2017-06-05 10:13 | Day surgery (SDC) | payer OTHER ==
[2017-06-05] MEDS: NS 1,000 ML IV ×2 (10:30→12:37)
[2017-06-05] MEDS ORDERED: LIDOCAINE 2% INJ 100 MG/5 ML SDV (FOR ANES.) As Ordered (11:41)
[2017-06-05] MEDS ORDERED: PROPOFOL 200 MG/20 ML VIAL As Ordered ×2 (11:42)
== END 2017-06-05 12:40 | disposition home or self-care (01) ==
LOC: M OPP 10:13
DX: Z12.11 Encounter for screening for malignant neoplasm of colon (principal); D12.5 Benign neoplasm of sigmoid colon; K64.0 First degree hemorrhoids; R00.8 Other abnormalities of heart beat; K21.9 Gastro-esophageal reflux disease without esophagitis; R12 Heartburn; F41.9 Anxiety disorder, unspecified; G47.30 Sleep apnea, unspecified; R06.83 Snoring; Z88.8 Allergy status to other drugs, medicaments and biological substances; Z79.82 Long term (current) use of aspirin; Z79.899 Other long term (current) drug therapy
CPT/HCPCS: 45385

== ENCOUNTER → 2017-08-10 | Outpatient (CLI) | payer OTHER | LOC: M RAD 11:18 | DX: R22.2 Localized swelling, mass and lump, trunk (principal) | CPT/HCPCS: 76857 ==